=== PATIENT | female | born 1985 | race Caucasian/White ===

== ENCOUNTER 2018-02-07 16:21 | Inpatient (IN) ==
[2018-02-07 16:50] VITALS: BMI 26.9
[2018-02-07] MEDS ORDERED: CARBOPROST 250 MCG/ML INJECTION IM PRN (16:51)
[2018-02-07] MEDS ORDERED: METHYLERGONOVINE 0.2 MG/ML INJECTION IM PRN (16:51)
[2018-02-07] MEDS ORDERED: ACETAMINOPHEN 500 MG TABLET PO PRN (16:51)
[2018-02-07] MEDS ORDERED: LR 1,000 ML IV PRN (16:51)
[2018-02-07] MEDS ORDERED: MAG-AL + SIM ORAL LIQUID 30ml PO PRN ×2 (16:51→21:51)
[2018-02-07] MEDS ORDERED: LIDOCAINE 1% (10mg/ml) 2mL INJ PF SDV ID PRN (16:51)
[2018-02-07] MEDS ORDERED: CALCIUM CARBONATE Chewable 500mg TABLET PO PRN ×2 (16:51→21:51)
[2018-02-07] MEDS ORDERED: D5LR 1,000 ML IV PRN (18:42)
[2018-02-07] MEDS ORDERED: OXYTOCIN DRIP 30 UNIT/500 ML ML IV PRN (18:42)
[2018-02-07] MEDS ORDERED: NALOXONE 0.4 MG/ML INJECTION IVP PRN (19:54)
[2018-02-07] MEDS ORDERED: ONDANSETRON 4 MG/2 ML INJECTION IVP PRN (19:54)
[2018-02-07] MEDS ORDERED: DiphenhydrAMINE 50 MG/ML INJECTION IVP PRN (19:54)
[2018-02-07] MEDS ORDERED: ROPIVACAINE 1% 10MG/ML INJ 200 MG, SUFentanil 50 MCG in NS 100 ML EPI PRN (19:54)
--- NOTE | 2018-02-07 19:54 | Anesthesia Preoperative Report ---
Anesthesia Epidural/Spinal Rec - Date and Time Date: 02/07/18 Procedure: Labor Epidural Plan: Epidural - Vital Signs Vital Signs: Temperature 98.2 F 02/07/18 17:45 Pulse Rate 75 02/07/18 17:45 Respiratory Rate 16 02/07/18 17:45 Blood Pressure 125/77 02/07/18 17:45 /Para: P:1 - Medictaions & Allergies Inpatient Medications: Current Medications Acetaminophen (Tylenol) 500 - 1,000 mg PO Q4H PRN PRN Reason: Pain Al Hydroxide/Mg Hydroxide (Maalox Plus) 30 ml PO Q3H PRN PRN Reason: Indigestion Calcium Carbonate (Tums) 500 - 1,000 mg PO Q2H PRN PRN Reason: Indigestion Carboprost Tromethamine (Hemabate) 250 mcg IM O PRN PRN Reason: .Downtime Lactated Ringer's (Lactated Ringers) 1,000 mls @ 999 mls/hr IV .Q1H1M PRN Last Admin: 02/07/18 17:29 Dose: 999 mls/hr Oxytocin (Pitocin Drip) 30 unit in 500 mls @ 2 mls/hr IV .Q24H PRN; Protocol PRN Reason: Induction/Augmentation Last Admin: 02/07/18 18:30 Dose: 2 mls/hr Dextrose/Lactated Ringer's (Dextrose 5%-Lactated Ringers) 1,000 mls @ 125 mls/ hr IV .Q8H PRN PRN Reason: Labor Last Admin: 02/07/18 18:50 Dose: 125 mls/hr Lidocaine HCl (Xylocaine-Mpf 1% Vial) 0.2 mg ID O PRN PRN Reason: IV Start Methylergonovine Maleate (Methergine) 0.2 mg IM O PRN Misoprostol (Cytotec) 800 mcg MD ONCE PRN Allergies/Adverse Reactions: Allergies Allergy/AdvReac Type Severity Reaction Status Date / Time juniper tar Allergy Unknown Verified 01/25/18 22:34 No Known Drug Allergies Allergy Unknown Verified 01/25/18 22:34 - Home Medications Home Medications: Home Medications Medication Instructions Recorded Confirmed Type Desogestrel-Ethinyl Estradiol 1 tab PO DAILY #84 06/07/15 History [Apri 28 Day Tablet] - Medical History Respiratory: DENIES: Asthma, Bronchitis, Chronic Obstructive Pulmonary Disease (COPD), Dyspnea, Orthopnea, Pulmonary Embolism, Pneumonia, Upper Respiratory Infection, Pulmonary Edema, Sleep Apnea, Tuberculosis, Other Cardiovascular: DENIES: Abnormal EKG, Angina, Arrhythmia, Congestive Heart Failure, Coronary Artery Disease, Heart Murmur, Hypertension, Hypotension, High Cholesterol, Myocardial Infarction, Rheumatic Fever, Valvular Heart Disease, Other Gastrointestional: Reports: Gastroesophageal Reflux Disease (with ) Neuro/Musculoskeletal: Reports: Other (scoliosis) Denies: Depression Renal/Endocrine: DENIES: Diabetes Mellitus Type 1, Diabetes Mellitus Type 2, Renal Failure, Dialysis, Thyroid Disease, Weight Loss, Weight Gain, Other Other History: Reports: Now DENIES: Anesthesia Reactions - Surgical History Reproductive Surgery/Treatment: Reports: Other (TAB 2006) DENIES: Section Anesthesia Reactions: None Hx Family Anesthesia Reaction: No History of Motion Sickness: No - Social History Smoking Status: Never smoker Substance Use Type: does not use - Pertinent Findings Lab Data: CBC and BMP 02/07/18 17:18 - Physical Exam Respiratory Exam: lungs clear, bilateral breath sounds equal Cardiovascular Exam: regular rate and rhythm, no murmur - Airway Assessment Mallampati Score: II TMD: 3 Fingerbreadths Neck Extension: good Overall Assessment: may be difficult intubation - ASA ASA Score: 2 - Discussion Discussion: Discussed risks/options/alternatives of anesthesia and questions answered. Patient consents. Nursing pain assessment noted. Anesthesia Discussion: spouse Attestation Statement: Prior to the delivery of any anesthetic medication, I examined the patient, developed the plan, obtained the patient's consent and discussed the risk and benefits of the procedure with the patient/guardian.
[2018-02-07] MEDS ORDERED: LIDOCAINE 1.5% W/EPI 1:200,000 30ml SDV PF ONE (20:24)
[2018-02-07] MEDS ORDERED: DiphenhydrAMINE 25 MG CAPSULE PO PRN (21:51)
[2018-02-07] MEDS ORDERED: HYDROCODONE/APAP 5mg/325mg TABLET PO PRN (21:51)
[2018-02-07] MEDS ORDERED: OXYTOCIN DRIP 30 UNIT/500 ML ML IV SCH (21:51)
[2018-02-07] MEDS ORDERED: HYDROCORTISONE 2.5% CREAM 30gm RECTALLY PRN (21:51)
[2018-02-07] MEDS: IBUPROFEN 800 MG TABLET PO PRN (23:37)
[2018-02-08 01:45] VITALS: O2SAT 97
[2018-02-08] MEDS: ACETAMINOPHEN 500 MG TABLET PO PRN ×2 (02:59→20:59)
[2018-02-08] MEDS ORDERED: DOCUSATE CALCIUM 240 MG CAPSULE PO SCH (09:00)
[2018-02-08] MEDS: IBUPROFEN 800 MG TABLET PO PRN ×2 (09:26→16:48)
--- NOTE | 2018-02-08 10:52 | Labor and Delivery Note ---
DATE OF DELIVERY: 02/07/2018 ATTENDING PHYSICIAN: Mary Ellen Garnica MD DELIVERING PHYSICIAN: Dylon Johnston MD DIAGNOSES 1. 32-year-old white female, G3, P1, at 38.3 weeks gestational age. 2. Spontaneous rupture of membranes. 3. Pitocin augmentation to 6 milliunits/minute. 4. Epidural anesthesia. 5. Spontaneous vaginal delivery. 6. OP rotating to OA. 7. Female , 8/8 Apgars, 3080g. This is a patient of Dr. Garnica whose water broke at home at approximately 1500 hours today. She called the office and was informed to come to Labor and Delivery. It was confirmed that she was ruptured so she was admitted. After 3- 1/2 hours from rupture she was not in labor. Her contractions were 11 minutes apart and she was comfortable through them. I talked to the patient and her . We started Pitocin augmentation. Shortly after starting and her contractions got close together, she wanted a block. A block was placed. Initially her cervix was 1 cm dilated. She was uncomfortable after the block and she was starting to have early decelerations, so I rechecked her and she was 7 cm and OP. Anesthesia came and re-bolused because she was uncomfortable on her left side. They bloused with lidocaine. Shortly thereafter she was complete in OA and had a strong urge to push. We pushed for a few minutes and had a spontaneous vaginal delivery from the OA position. was bulb suctioned after delivery of the head and then again after delivery of the body. Cord was allowed to drain for two minutes and then it was doubly clamped and the infant's father cut the cord. was then placed on the mother's abdomen. Placenta delivered four minutes later and was intact. Perineum was essentially intact with a small stretch dylan on the right side. There was a small inclusion cyst in the vaginal tract that was opened and drained. EBL was 250. Maternal blood type is O+, rubella is immune and GBS is negative. At time of dictation mother and infant are doing well. MTDD
--- NOTE | 2018-02-08 14:01 | Progress Note ---
OB PP Progress Note Free Text - Date Date: 02/08/18 - Progress Note Progress Note: vss af possible dc today dc instructions reviewed q&a f/u 5-6wks w/ Dr. Garnica no rx needed.
[2018-02-08 21:01] VITALS: BP 110/63; PULSE 70; RESP 14; TEMP 98.2
== END 2018-02-08 21:57 | disposition home or self-care (01) | DRG 775 ==
LOC: MC 16:21 → OBOBS 16:21 → MC 16:58
PROVIDERS: ADMIT Obstetrics & Gynecology; ATTEND Obstetrics & Gynecology